=== PATIENT | male | born 1990 | race Caucasian/White ===

== ENCOUNTER 2021-03-04 21:57 | Emergency (ER) | payer SELFPAY ==
[~2021-03-04] VITALS: Ht 180.3 cm; Wt 84.0 kg
[2021-03-04] MEDS ORDERED: SODIUM CHLORIDE 0.9% 1,000 ML IV ONE (22:45)
[2021-03-04 23:50] LABS: BASOPHILS % 0.4 % (0.0-2.0); EOSINOPHILS % 0.7 % (0.0-5.0); HEMOGLOBIN. 16.9 g/dL (14.0-18.0); LYMPHOCYTES % 15.4 % (20.0-50.0); MEAN CORPUSCULAR HEMOGLOBIN 32.1 pg (28.0-32.0); MEAN CORPUSCULAR VOLUME 93.2 fL (80.0-94.0); MEAN PLATELET VOLUME 7.2 fl (7.4-10.4); MONOCYTES % 11.8 % (2.0-8.0); NEUTROPHILS % 71.7 % (40.0-76.0); PLATELET 317 x1000/uL (130-400); RED BLOOD CELL COUNT 5.26 mill/uL (4.7-6.1); RED CELL DISTRIBUTION WIDTH 15.3 % (11.6-14.6)
[2021-03-05] LABS: CHLORIDE 106 mEq/L (98-107)
[2021-03-05 00:07] LABS: ETHANOL BLOOD < 10 mg/dL
[2021-03-05] MEDS ORDERED: LORAZEPAM 2MG/ML CPJ IM ONE (03:00)
[2021-03-05] MEDS ORDERED: HALOPERIDOL LACTATE 5MG/ML VIAL IM ONE (03:00)
[2021-03-05] MEDS ORDERED: DIPHENHYDRAMINE 50MG/ML VIAL IM ONE (03:00)
[2021-03-05 11:30] VITALS: BP 128/60
== END 2021-03-05 12:39 | disposition home or self-care (01) ==
LOC: EDBD 21:57 → ER 21:57
DX: R41.82 Altered mental status, unspecified (principal); I49.9 Cardiac arrhythmia, unspecified; Z13.9 Encounter for screening, unspecified
CPT/HCPCS: 36415; 70450; 80053; 80307; 80320; 80329; 85025; 93005; 96360; 96372; 99285; J1200; J1630; J2060; J7030; Z7610; G0480